=== PATIENT | male | born 1970 | race Two or more races ===

== ENCOUNTER 2024-07-08 14:01 | Outpatient (AMB) | payer MEDICAID, SELFPAY ==
--- NOTE | 2024-07-08 14:11 | GSCOFFNT_ITS ---
Vital Signs - [facility] 07/08/24 14:12 Height 1.65 m Height Method Stated Weight 71.724 kg Weight Measurement Method Standing Scale BMI 26.3 BP 141/88 H Blood Pressure Source Automatic Cuff Blood Pressure Location Left Upper Arm Position Sitting Respiration 19 Pulse 85 Pulse Source Monitor Temp 97.2 F Temp Source Temporal Artery Scan Pulse Oximetry (%) 98 Oxygen Delivery Method Room Air Med/Allergies Allergies & Medications Allergies No Known Allergies Allergy (Verified 07/08/24 14:12) Medication Reconciliation amoxicillin 875 mg-potassium clavulanate 125 mg tablet 1 tab PO BID 07/08/24 [History Confirmed 07/08/24] aspirin 81 mg tablet,delayed release 81 mg PO QDAY 07/08/24 [History Confirmed 07/08/24] cholecalciferol (vitamin D3) 125 mcg (5,000 unit) tablet 125 mcg PO QDAY 07/08/24 [History Confirmed 07/08/24] metformin 1,000 mg tablet 1,000 mg PO QDAY 07/08/24 [History Confirmed 07/08/24] omeprazole 20 mg capsule,delayed release 20 mg PO QDAY 07/08/24 [History Confi rmed 07/08/24] MA Intake Visit Data Collection New Patient or Established: New Patient (never been to [facility]) Seen by Clinical Staff ONLY (RN/MA): No Reason for Visit:: REFERRAL GALLBLADDER Pain Present Currently: Yes Pain Location: Abdomen Photograph Mounter Required: Yes PCP or OBGYN visit in last 3 months: Yes Hx Now: No Do You Feel Safe at Home: Yes Authorities Contacted: N/A Smoking Status Smoking Status: Never smoker Immunization / Flu Flu Vaccine in the Last 12 Months: No Flu Vaccine Exclusion Criteria: Refused by Patient Past Medical History Social History SMOKING STATUS: Smoking status: Never smoker HPI HPI Narrative Spoke to pt with in-person historic interpreter 53M presenting with symptomatic cholelithiasis. Pt reports for the past year he has had episodes of R upper quadrant pain, described as burning, which is uncomfortable especially with movement. He states pain is not always related to eating but is very bothersome and associated with nausea. He denies any fever or diarrhea. Pt underwent abd US in [place] showing gallstones and fatty liver PMH: DMII PSHx: None Meds: Currently on augmentin for toe blister, ASA 81, vitamin D3, metformin, omeprazole Allergies: NKDA Social hx: Nonsmoker ROS Review of Systems Systems Reviewed: All systems reviewed, normal except as documented Objective/Exam General General Appearance: alert, cooperative and well groomed Resp Respiratory exam: Absent respiratory distress Abdominal Abdominal exam: Present soft; Absent distention or tenderness Results US at [facility] 04/16/24: Gallstone, normal gallbladder wall, no intra or extrahepatic biliary ductal dilatation, CBD not dilated, fatty liver Assessment & Plan Diagnosis / Problem List (1) Symptomatic cholelithiasis: Status: Acute Assessment & Plan: 53M with DMII presenting with symptomatic cholelithiasis. I explained benefits/risks of surgery including need for conversion to open, bleeding, infection, hernia, and injury to nearby structures requiring further procedures or surgery which would require care at a tertiary center. Pt expressed understanding and would like to proceed Office Procedures GNS Level of Care Nursing/Assessment Patient Status: Established Patient Nursing Assessment/Reassesment: Medication Reconciliation, Update PMH in EMR and Vital Signs Coordination of Care: Complex Care and Chronic Disease 1-5, Education Complex Pt/Fam, Consent,records obtained, informed consent, 1 Ins Authorization, Lab and Imaging orders, Results/Orders obtained and Staff clarify orders Special Needs: Language special needs Established Patient Charge Established Patient Point Assignment: 125 Established Patient Point Charge: EP Level 4 (120-155) Patient Portal Questionaires Social History Tobacco History Smoking Status: Never smoker Domestic Abuse History Do You Feel Safe at Home: Yes Review of Systems Report any current symptoms Only answer those that you have currently: Past Medical History Past Medical History Have you ever been diagnosed with any of the following:
[2024-07-08 14:12] VITALS: BP 141/88; PULSE 85; RESP 19; TEMP 36.2; O2SAT 98; BMI 26.3
== END 2024-07-08 14:26 | disposition home or self-care (01) ==
LOC: HODSRG 14:01
PROVIDERS: PCP Family Medicine; Referring Provider Family Medicine; Supervising Provider Surgery; Visit Provider Surgery
DX: K80.20 Calculus of gallbladder without cholecystitis without obstruction (principal)
CPT/HCPCS: 99214; G0463

== ENCOUNTER → 2024-07-19 | Outpatient (CLI) | payer MEDICAID, SELFPAY ==
--- NOTE | 2024-07-19 06:39 | EKG_ITS ---
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
[2024-07-19 12:27] VITALS: BMI 25.9
[2024-07-19 13:33] LABS: Basophils % (Auto) 1 % (0-2.5); Eosinophils # (Auto) 0.1 Thou/mm3 (0.0-0.5); Eosinophils % (Auto) 2 % (0-10); Hematocrit 45.1 % (41.0-53.0); Hemoglobin 16.1 g/dL (13.5-16.0); Immature Granulocytes % (Auto) 0 % (0-0); Immature Granulocytes Auto 0.01 Thou/mm3 (0.00-0.00); Lymphocytes # (Auto) 1.3 Thou/mm3 (1.0-4.8); Lymphocytes % (Auto) 27 % (10-50); Mean Corpuscular HGB Conc 35.7 g/dl (31.0-37.0); Mean Corpuscular Hemoglobin 30.6 pg (25.0-35.0); Mean Corpuscular Volume 86 fL (80-100); Monocytes # (Auto) 0.3 Thou/mm3 (0.0-0.8); Monocytes % (Auto) 6 % (0-12); Neutrophils # (Auto) 3.1 Thou/mm3 (1.8-7.7); Neutrophils % (Auto) 65 % (37-80); Nucleated Red Blood Cell % 0 /100 WBC (0); Platelet Count 213 Thou/mm3 (140-440); RDW Standard Deviation 39.3 fL (35.1-43.9); Red Blood Count 5.27 Miln/mm3 (4.50-5.90); White Blood Count 4.7 Thou/mm3 (3.8-10.6)
[2024-07-19 13:49] LABS: Partial Thromboplastin Time 25.9 Seconds (22.0-36.0); Prothrombin Time 11.3 Seconds (9.0-12.2)
[2024-07-19 14:05] LABS: Alanine Aminotransferase 63 U/L (10-49); Albumin, Serum 4.6 gm/dL (3.5-5.0); Albumin/Globulin Ratio 1.8 (1.2-2.2); Alkaline Phosphatase 78 U/L (46-116); Anion Gap 4 (7-16); Aspartate Amino Transferase 30 U/L (0-34); BUN/Creatinine Ratio 13 Ratio (12-20); Bilirubin,Total 0.7 mg/dL (0.3-1.2); Blood Urea Nitrogen 13 mg/dL (9-23); Calcium 9.6 mg/dL (8.3-10.6); Calcium (Corrected) 9.6 mg/dL (8.5-10.1); Carbon Dioxide 29.1 mMol/L (20.0-31.0); Chloride 101 mMol/L (98-107); Globulin 2.5 gm/dL (2.3-3.5); Osmolality,Calculated 288 (275-295); Sodium 134 mMol/L (136-145); Total Protein 7.1 gm/dL (5.7-8.2); eGFR > 60 See Note
[2024-07-19 14:11] LABS: Glucose 463 mg/dL (74-106)
--- NOTE | 2024-07-19 14:26 | SUR.PREOP ---
Pt glucose 463, contacted pt, he stated he had just eaten 30 min prior to coming for labs and he took his metformin with his meal. Dr Figueroa notified and no orders given.
== END | disposition home or self-care (01) ==
LOC: SLAB 07-25 08:03
PROVIDERS: Anesthesiology; PCP Family Medicine; Referring Provider Surgery; Visit Provider Surgery
PROC: 0FT44ZZ Resection of Gallbladder, Percutaneous Endoscopic Approach (ICD-10-PCS; CPT 47562; principal; 2024-07-24 09:00)
DX: K80.20 Calculus of gallbladder without cholecystitis without obstruction (principal)
CPT/HCPCS: 36415; 80053; 85025; 85610; 85730; 93005